=== PATIENT | female | born 1980 | race Caucasian/White ===

== ENCOUNTER 2016-06-19 11:15 | Emergency (ER) | payer OTHER ==
--- NOTE | ~2016-06-19 | CT4 ---
[facility] RADIOLOGY TEXT RESULTS PATIENT: RUPERT QUIJANO LOCATION: [facility] : 80 UNIT #: [id number] AGE: [address]: Gianna Welch SEX: F ORDER DR: [id number] [facility] [address] [place], [place] [address] [id number] E MR#: [id number] Acc #: [id number] NAME: RUPERT QUIJANO : 1980 SEX: F STUDY DATE/TIME: 06/19/2016 11:37 UNIT: [facility] ROOM: STUDY DESCRIPTION: CT Abd and Pelv Wo Cont Attending Physician: Gianna Welch P.A.-C. Ordering Physician: Gianna Welch P.A.-C. Primary Care Physician: Charmaine Marrufo M.D. MEDICAL IMAGING REPORT This report is preliminary unless electronic signature is present EXAM CT abdomen and pelvis without contrast. HISTORY Back pain for three hours. Urinary urgency. COMPARISON None. This CT exam was performed with one or more of the following radiation dose reduction techniques: automatic exposure control, adjustment of mA and/or kV according to patient size, and iterative reconstruction. TECHNIQUE Axial 3 mm images were obtained through the abdomen and pelvis without IV or oral contrast. FINDINGS Lung bases are clear except for a calcified right base granuloma. The liver, pancreas, adrenal glands and kidneys are normal. There is a thin walled cystic area in the spleen that has some minimal peripheral eggshell like calcifications. This has a benign appearance, it is 6.3 cm in diameter. The gallbladder is not visible. The aorta is normal in size. Bowel is normal. The uterus and adnexa and bladder are normal. The bones are unremarkable. IMPRESSION 1. The gallbladder is either retracted or it has been removed. 2. There is a roughly 6 cm benign appearing cystic lesion in the spleen which has thin eggshell calcifications around its periphery. 3. No urinary stones are identified. [facility] RADIOLOGY TEXT RESULTS PATIENT: RUPERT QUIJANO LOCATION: [facility] : 80 UNIT #: [id number] AGE: [address]: Gianna Welch SEX: F ORDER DR: Dictated by... Dick Jackson M.D. THIS IS AN ELECTRONICALLY VERIFIED REPORT Dick Jackson M.D. at 06/20/2016 3:07 PM Concepcion TD: 06/20/2016 06:05 JOB #: [id number] MEDICAL IMAGING REPORT COPY
[2016-06-19 11:10] LABS: URINE SOURCE CATH
[2016-06-19 11:15] LABS: URINE APPEARANCE CLEAR; URINE BILIRUBIN NEG (NEG); URINE BLOOD 2+ (NEG); URINE COLOR YELLOW; URINE GLUCOSE NEG (NEG); URINE KETONE TRACE (NEG); URINE LEUKOCYTE ESTERASE NEG (NEG); URINE NITRATE NEG (NEG); URINE PROTEIN NEG (NEG); URINE SPECIFIC GRAVITY 1.032 (1.003-1.035); URINE UROBILINOGEN 0.2 MG/DL (NEG)
[~2016-06-19 11:15] MED LIST: HYDROCODON-ACE1 EACH PO; ZOFRAN
[2016-06-19 11:18] LABS: CULTURE INDICATED? NO; URINE BACTERIA AUWI NEG (NEGATIVE); URINE SQUAMOUS EPITHELIAL CELL OCC /[HPF]
== END 2016-06-19 12:28 | disposition home or self-care (01) ==
LOC: CFTX 11:15
PROVIDERS: Physician Assistant
DX: R10.9 Unspecified abdominal pain (principal); R03.0 Elevated blood-pressure reading, without diagnosis of hypertension
CPT/HCPCS: 74176; 81003; 99284

== ENCOUNTER 2016-08-30 04:22 | Emergency (ER) | payer OTHER ==
--- NOTE | ~2016-08-30 | US85 ---
[facility] A Service of [facility] RADIOLOGY TEXT RESULTS PATIENT: RUPERT QUIJANO LOCATION: [facility] : 80 UNIT #: [id number] AGE: [address]: Michelle Villalobos SEX: F ORDER DR: [id number] [facility] [address] [place], [place] [address] [id number] E MR#: [id number] Acc #: [id number] NAME: RUPERT QUIJANO : 1980 SEX: F STUDY DATE/TIME: 08/30/2016 7:51 UNIT: [facility] ROOM: STUDY DESCRIPTION: [facility] Veins Unilat or Ltd Stdy Attending Physician: Michelle Villalobos Pa-C Ordering Physician: Siri Adams A.P.R.N. Primary Care Physician: Charmaine Marrufo M.D. MEDICAL IMAGING REPORT This report is preliminary unless electronic signature is present EXAM Left lower extremity venous Doppler HISTORY 36-year-old female with right lower leg pain x2 days. No prior history of DVT. Patient not on blood thinners. FINDINGS 2-D Doppler evaluation of the right lower extremity demonstrates visible thrombus in noncompressible lumen of the superficial femoral vein, popliteal vein and calf veins compatible with acute DVT. The common femoral and profunda femoral veins appear patent. The saphenous veins are patent. IMPRESSION Abnormal right lower extremity venous Doppler demonstrating extensive DVT involving the superficial femoral vein, popliteal vein and calf veins. Dictated by... Fouzia Mera M.D. THIS IS AN ELECTRONICALLY VERIFIED REPORT Fouzia Mera M.D. at 08/30/2016 3:57 PM YANNA/jimmy TD: 08/30/2016 09:13 JOB #: [id number] MEDICAL IMAGING REPORT Page 1 of 1 COPY
[2016-08-30] MEDS ORDERED: RANITIDINE HCL150 M1 PO (04:36)
[2016-08-30] MEDS ORDERED: NAPROXEN PO (04:36)
[2016-08-30] MEDS ORDERED: ZYRTEC10 M1 PO (04:37)
[2016-08-30] MEDS ORDERED: DICLOFENAC PO (04:37)
[2016-08-30] MEDS ORDERED: SERTRALINE HCL100 M1 PO (04:37)
[2016-08-30 06:28] LABS: BASOPHIL# 0.1 X10e3 (0-0.3); BASOPHIL% 0.7 % (0-2.5); DIFF IND NO; EOSINOPHIL# 0.3 X10e3 (0-0.7); EOSINOPHIL% 1.9 % (0.0-7.0); HEMOGLOBIN 14.2 gm/dL (12.0-16.0); LYMPHOCYTE# 1.7 X10e3 (1.0-3.5); LYMPHOCYTE% 11.9 % (17.0-45.0); MEAN CELL VOLUME 88.7 FL (83-96); MEAN CORPUSCULAR HEMOGLOBIN 29.3 PG (28-34); MEAN CORPUSCULAR HGB CONC 33.1 g/dL (30-36); MEAN PLATELET VOLUME 8.2 FL (6.5-11.5); MONOCYTE% 7.1 % (3.0-12.0); NEUTROPHIL# 10.9 X10e3 (1.5-7.1); NEUTROPHIL% 78.4 % (40-75); PLATELET COUNT 239 X10e3 (140-420); RED BLOOD COUNT 4.85 X10e (3.90-5.30); RED CELL DISTRIBUTION WIDTH 13.8 % (11.0-15.5)
[2016-08-30 06:42] LABS: PARTIAL THROMBOPLASTIN TIME 29.6 SECONDS (23.5-31.3); PROTHROMBIN TIME (PATIENT) 10.6 SECONDS (9.6-11.5)
[2016-08-30 07:05] LABS: BUN/CREATININE RATIO 22.22; CALCIUM SERUM 8.5 mg/dL (8.4-10.2); CREATININE SERUM 0.9 mg/dL (0.6-1.4); GLOM FILT RATE Estimated 82.3 mL/min (>60); POTASSIUM 4.3 mmol/L (3.5-5.1)
== END 2016-08-30 11:00 | disposition home or self-care (01) ==
LOC: CED 04:22
PROVIDERS: Nurse Practitioner
DX: I82.4Z1 Acute embolism and thrombosis of unspecified deep veins of right distal lower extremity (principal); Z88.0 Allergy status to penicillin; Z88.2 Allergy status to sulfonamides
CPT/HCPCS: 36415; 80048; 85025; 85610; 85730; 93971; 99284